=== PATIENT | female | born 1960 | race Caucasian/White ===

== ENCOUNTER 2018-03-27 14:49 | Inpatient (IN) | payer MEDICAID ==
[~2018-03-27] VITALS: Ht 177.8 cm; Wt 94.1 kg
[~2018-03-27 14:49] MED LIST: ARICEPT5 MG PO; GLU5 PO; LOP600 PO; METFORMIN HYD1000 M1 PO; NORCO1 TA2 PO; RESTORIL15 MG PO
[2018-03-27 14:55] VITALS: Ht 177.8 cm; Wt 94.1 kg
[2018-03-27 15:28] LABS: BASOPHIL % 0.8 % (0-2); PLATELET COUNT 177 x10^3mcL (130-400); RED CELL DISTRIBUTION WIDTH 12.9 % (11.5-14.5)
[2018-03-27 15:47] LABS: CALCIUM 8.5 mg/dL (8.5-10.1); CARBON DIOXIDE 21.3 mmol/L (21-32); CHLORIDE SERUM 106 mmol/L (98-107); CREATININE SERUM 0.5 mg/dL (0.6-1.0); GFR1 > 60 mL/min; GLUCOSE SERUM 238 mg/dL (74-106); POTASSIUM SERUM 3.6 mmol/L (3.5-5.1); SODIUM SERUM 139 mmol/L (136-145)
[2018-03-27] MEDS ORDERED: MOT800 PO (16:45)
[2018-03-27 17:36] LABS: CHOLESTEROL/HDL RATIO 2.6; MAGNESIUM 1.6 mg/dL (1.8-2.4); PHOSPHOROUS 2.7 mg/dL (2.5-4.9)
[2018-03-27 17:39] LABS: T3 TOTAL 0.93 ng/mL
[2018-03-27 17:43] LABS: FREE T4 1.14 ng/dL (0.76-1.46); FREE THYROXINE INDEX 2.5 ug/dL (1.4-4.5); T4(THYROXINE) 6.9 ug/dL (4.7-13.3)
[2018-03-27 18:52] VITALS: BP 142/68
[2018-03-27 21:12] VITALS: BP 126/66
[2018-03-27 22:30] VITALS: BP 126/66
[2018-03-28 05:39] VITALS: BP 115/65
[2018-03-28 06:39] LABS: BASOPHIL % 0.4 % (0-2); PLATELET COUNT 159 x10^3mcL (130-400); RED CELL DISTRIBUTION WIDTH 12.7 % (11.5-14.5)
[2018-03-28 06:58] LABS: CALCIUM 8.3 mg/dL (8.5-10.1); CARBON DIOXIDE 27.2 mmol/L (21-32); CHLORIDE SERUM 109 mmol/L (98-107); CREATININE SERUM 0.6 mg/dL (0.6-1.0); GFR1 > 60 mL/min; GLUCOSE SERUM 208 mg/dL (74-106); MAGNESIUM 1.8 mg/dL (1.8-2.4); PHOSPHOROUS 3.9 mg/dL (2.5-4.9); POTASSIUM SERUM 3.7 mmol/L (3.5-5.1); SODIUM SERUM 142 mmol/L (136-145)
[2018-03-28 10:07] VITALS: BP 135/69
[2018-03-28 10:17] LABS: AMPHETAMINE QUAL UR NONE DETECTED (NEG <=1000)
[2018-03-28 10:37] LABS: UA SPECIFIC GRAVITY 1.025 (1.005-1.035); microscopic required? YES; urine erythrocyte TRACE (NEGATIVE)
[2018-03-28] MEDS ORDERED: GOOD NEIGHBOR P20 M2 PO (14:25)
[2018-03-28] MEDS ORDERED: LISINOPRIL10 MG PO (14:25)
[2018-03-28] MEDS ORDERED: ZOLOFT50 MG PO (16:55)
[2018-03-28] MEDS ORDERED: FOL1 PO (16:56)
[2018-03-28] MEDS ORDERED: THI100 PO (16:59)
[2018-03-28] MEDS ORDERED: THERAGRAN-M1 TA4 PO (17:02)
[2018-03-28 17:12] VITALS: BP 135/69
[2018-03-28] MEDS ORDERED: ATORVASTATIN CA40 M1 PO (17:26)
[2018-03-28] MEDS ORDERED: BAYER ASPIRIN R81 MG PO (17:26)
[2018-03-28 17:27] VITALS: BP 118/60
== END 2018-03-28 17:46 | disposition home or self-care (01) | DRG 194 ==
LOC: ED 14:49 → DU 16:33 → MU 03-28 11:06
PROVIDERS: Emergency Medicine; Family Medicine
DX: I11.0 Hypertensive heart disease with heart failure (principal); N17.0 Acute kidney failure with tubular necrosis; I50.33 Acute on chronic diastolic (congestive) heart failure; E11.65 Type 2 diabetes mellitus with hyperglycemia; E11.51 Type 2 diabetes mellitus with diabetic peripheral angiopathy without gangrene; K21.9 Gastro-esophageal reflux disease without esophagitis; F33.1 Major depressive disorder, recurrent, moderate; I08.1 Rheumatic disorders of both mitral and tricuspid valves; F17.210 Nicotine dependence, cigarettes, uncomplicated; F17.200 Nicotine dependence, unspecified, uncomplicated; Z88.6 Allergy status to analgesic agent; Z88.5 Allergy status to narcotic agent; Z87.442 Personal history of urinary calculi; Z91.14 Patient's other noncompliance with medication regimen; Z80.9 Family history of malignant neoplasm, unspecified
CPT/HCPCS: 82962; 83880; 84439; 94150; G0480; J3010; J3490; J7030; J7620; Q0092

== ENCOUNTER 2018-08-22 00:30 | Emergency (ER) | payer SELFPAY ==
[~2018-08-22] VITALS: Ht 177.8 cm; Wt 93.9 kg
[~2018-08-22 00:30] MED LIST changes: +ATORVASTATIN CA40 M1 PO; +BAYER ASPIRIN R81 MG PO; +FOL1 PO; +GOOD NEIGHBOR P20 M2 PO; +LISINOPRIL10 MG PO; +MOT800 PO; +THERAGRAN-M1 TA4 PO; +THI100 PO; +ZOLOFT50 MG PO
[2018-08-22 00:37] VITALS: Ht 177.8 cm; Wt 93.9 kg
[2018-08-22 01:30] VITALS: BP 147/75
== END 2018-08-22 01:38 | disposition home or self-care (01) ==
LOC: ED 00:30
DX: S73.101A Unspecified sprain of right hip, initial encounter (principal); M54.41 Lumbago with sciatica, right side; E11.9 Type 2 diabetes mellitus without complications; I10 Essential (primary) hypertension; E78.00 Pure hypercholesterolemia, unspecified; Z88.5 Allergy status to narcotic agent; X58.XXXA Exposure to other specified factors, initial encounter; Y93.89 Activity, other specified; Y92.69 Other specified industrial and construction area as the place of occurrence of the external cause; Y99.8 Other external cause status
CPT/HCPCS: J1885; Q0092

== ENCOUNTER 2019-08-28 17:33 | Emergency (ER) | payer SELFPAY ==
[~2019-08-28] VITALS: Ht 177.8 cm; Wt 91.6 kg
[2019-08-28 17:57] VITALS: Ht 177.8 cm; Wt 91.6 kg
[2019-08-28 20:31] VITALS: BP 136/84
== END 2019-08-28 20:31 | disposition home or self-care (01) ==
LOC: ED 17:33
DX: S60.211A Contusion of right wrist, initial encounter (principal); S50.01XA Contusion of right elbow, initial encounter; F17.210 Nicotine dependence, cigarettes, uncomplicated; I10 Essential (primary) hypertension; E11.9 Type 2 diabetes mellitus without complications; E78.00 Pure hypercholesterolemia, unspecified; Z88.5 Allergy status to narcotic agent; W06.XXXA Fall from bed, initial encounter; Y93.89 Activity, other specified; Y92.89 Other specified places as the place of occurrence of the external cause; Y99.8 Other external cause status
CPT/HCPCS: J1885

== ENCOUNTER 2019-09-11 00:31 | Emergency (ER) | payer SELFPAY ==
[2019-09-11 00:34] VITALS: Ht 177.8 cm
[2019-09-11 01:13] VITALS: BP 160/78
== END 2019-09-11 01:13 | disposition home or self-care (01) ==
LOC: ED 00:31
DX: S00.451A Superficial foreign body of right ear, initial encounter (principal); F17.200 Nicotine dependence, unspecified, uncomplicated; I10 Essential (primary) hypertension; E11.9 Type 2 diabetes mellitus without complications; E78.00 Pure hypercholesterolemia, unspecified; Z88.5 Allergy status to narcotic agent; Z98.890 Other specified postprocedural states; Z71.6 Tobacco abuse counseling; X58.XXXA Exposure to other specified factors, initial encounter; Y93.89 Activity, other specified; Y92.89 Other specified places as the place of occurrence of the external cause; Y99.8 Other external cause status
CPT/HCPCS: 99406